=== PATIENT | female | born 1945 | race Caucasian/White ===

== ENCOUNTER 2019-04-28 17:21 | Emergency (ER) | payer MEDICARE, MEDICAID ==
[~2019-04-28] VITALS: Ht 165.1 cm; Wt 84.1 kg
[2019-04-28] MEDS ORDERED: ibuprofen 200mg tablet PO ONE (18:25)
[2019-04-28 19:03] VITALS: BP 153/72
== END 2019-04-28 19:04 | disposition home or self-care (01) ==
LOC: ER 17:21
DX: S81.812A Laceration without foreign body, left lower leg, initial encounter (principal); Z91.040 Latex allergy status; W10.9XXA Fall (on) (from) unspecified stairs and steps, initial encounter; Y93.01 Activity, walking, marching and hiking; Y92.89 Other specified places as the place of occurrence of the external cause; Y99.9 Unspecified external cause status
CPT/HCPCS: 73590; 99284